=== PATIENT | male | born 1995 | race Caucasian/White ===

== ENCOUNTER → 2016-09-12 | Outpatient (CLI) | payer BC ==
--- NOTE | 2016-09-17 09:47 | SLEEPHOME ---
DATE OF PROCEDURE: 09/12/2016 ORDERED BY: Tami Rodriguez NP Diagnostic home sleep testing was performed due to concern for the obstructive sleep apnea syndrome. For testing a NOX-T3 respiratory monitoring device was utilized. Continuous record was made of pulse, oxygen saturation, chest and abdominal strain, airflow, and body position. 6 hours and 51 minutes of data were reviewed. Of these, 6 hours and 46 minutes were marked as time in bed. During the interval marked time in bed, there were 39 respiratory events identified of 10 seconds in duration or greater for a respiratory event index of 5.8. The events were primarily obstructive and mixed and central in description. Baseline saturation 95%. Lowest oxygen saturation 85%. Baseline pulse rate 56 beats per minute. Pulse rate ranged 43-126. Testing was performed in both the supine and non-supine positions. IMPRESSION: Abnormal home sleep testing with repetitive respiratory events and oxygen desaturations to 85% with a respiratory event index of 5.8 is consistent with the obstructive sleep apnea syndrome. RECOMMENDATION: Patient should be referred for a formal sleep evaluation and in-laboratory pressure titration given the occurrence of oxygen desaturations and central events.
== END ==
LOC: M SLEEP 14:09
PROVIDERS: ATTEND Nurse Practitioner Adult Health
DX: G47.30 Sleep apnea, unspecified (principal)

== ENCOUNTER → 2016-09-24 | Outpatient (CLI) | payer BC ==
--- NOTE | 2016-09-27 11:00 | SLEEPCENT ---
DATE OF PROCEDURE: 09/24/2016 REQUESTING PROVIDER: Tami Rodriguez NP INTERPRETATION: Nocturnal polysomnography was performed for the titration of pressure therapy in this patient with obstructive sleep apnea syndrome, confirmed by home testing and revealing respiratory event index of 5.8. For testing, a ResMed Quattro full face mask of medium size was used, 5 cm of water pressure was initially applied to the circuit and the lights were extinguished. 7 hours and 32 minutes of data were reviewed. There were 335 minutes of sleep identified. Sleep latency was prolonged at 44 minutes. Rapid eye movement (REM) latency was normal at 69 minutes. Sleep architecture was fair. There was evidence of REM rebound late in the study. Overall sleep efficiency 75%. The patient's electrocardiogram (EKG) showed a sinus rhythm with an average heart rate of 60 beats per minute. Electroencephalogram (EEG) showed normal waveforms for awake and sleep. 5 cm of pressure CPAP was sufficient to address the patient's respiratory events. Some limb activity was noted, but there were no trains of events. Arousal index 4.5. Oxygen saturations remained 90% plus. IMPRESSION: 1. Obstructive sleep apnea syndrome (G47.33). RECOMMENDATIONS: Nightly use of pressure therapy at 5 cm of water.
== END ==
LOC: M SLEEP 19:56
PROVIDERS: ATTEND Nurse Practitioner Adult Health
DX: G47.33 Obstructive sleep apnea (adult) (pediatric) (principal)

== ENCOUNTER 2018-01-06 15:02 | Emergency (ER) | payer BC ==
[2018-01-06 17:04] LABS: HEMATOCRIT 46.1 % (42.0-52.0); HEMOGLOBIN 15.4 g/dl (13.5-17.5); MEAN CORPUSCULAR HEMOGLOBIN 29.2 pg (27.0-33.0); MEAN CORPUSCULAR HGB CONC 33.4 g/dl (32.0-36.5); MEAN CORPUSCULAR VOLUME 87.3 fl (80.0-96.0); PLATELET COUNT, AUTOMATED 212 10^3/uL (150-450); RED BLOOD COUNT 5.28 10^6/uL (4.30-6.10); RED CELL DISTRIBUTION WIDTH 12.5 % (11.5-14.5); WHITE BLOOD COUNT 27.4 10^3/uL (4.0-10.0)
[2018-01-06 17:06] LABS: ADD MANUAL DIFFER YES; DIFF SLIDE NUMBER 328; POSITIVE DIFF POS FLAG; POSITIVE MORPH POS FLAG
[2018-01-06 17:10] LABS: CONTROL LINE MONO INT CTR LINE PRESENT; MONO SCRN POSITIVE (NEGATIVE)
[2018-01-06 17:24] LABS: ALBUMIN 3.6 GM/DL (3.2-5.2); ALBUMIN/GLOBULIN RATIO 0.92 (1.00-1.93); ALKALINE PHOSPHATASE 201 U/L (45-117); ALT/SGPT 361 U/L (12-78); ANION GAP 9 MEQ/L (8-16); AST/SGOT 218 U/L (7-37); BILIRUBIN,DIRECT 0.4 MG/DL (0.0-0.2); BILIRUBIN,TOTAL 0.8 MG/DL (0.2-1.0); BLOOD UREA NITROGEN 10 MG/DL (7-18); CALCIUM LEVEL 8.9 MG/DL (8.5-10.1); CARBON DIOXIDE LEVEL 26 MEQ/L (21-32); CHLORIDE LEVEL 105 MEQ/L (98-107); CREATININE FOR GFR 1.05 MG/DL (0.70-1.30); GLOMERULAR FILTRATION RATE > 60.0 (>60); GLUCOSE, FASTING 86 MG/DL (70-100); LIPASE 99 U/L (73-393); POTASSIUM SERUM 4.7 MEQ/L (3.5-5.1); SODIUM LEVEL 140 MEQ/L (136-145); TOTAL PROTEIN 7.5 GM/DL (6.4-8.2)
[2018-01-06 17:37] LABS: ATYPICAL LYMPH 74 % (0-5); BANDS 1 % (< 11); LYMPHOCYTES 14 % (16-52); MONOCYTES 2 % (0-8); NEUTROPHILS 9 % (35-75); PLATELET ESTIMATE NORMAL (NORMAL)
== END 2018-01-06 18:38 | disposition home or self-care (01) ==
LOC: M ED 15:02
DX: B27.90 Infectious mononucleosis, unspecified without complication (principal)
CPT/HCPCS: 83690

== ENCOUNTER → 2018-01-13 | Outpatient (REF) | payer BC ==
[2018-01-13 13:31] LABS: ATYPICAL LYMPH 18 % (0-5); LYMPHOCYTES 47 % (16-52); MONOCYTES 15 % (0-8); NEUTROPHILS 20 % (35-75)
[2018-01-13 13:32] LABS: PLATELET ESTIMATE NORMAL (NORMAL)
== END ==
LOC: M LAB REF 11:56
DX: B27.90 Infectious mononucleosis, unspecified without complication (principal)
CPT/HCPCS: 85007